=== PATIENT | male | born 1985 | race Two or more races ===

== ENCOUNTER 2017-01-19 04:53 | Emergency (ER) | payer MEDICAID ==
[~2017-01-19] VITALS: Ht 180.3 cm; Wt 108.4 kg
[2017-01-19 05:02] VITALS: BP 152/70
[2017-01-19 06:18] LABS: Urine Bilirubin Negative (Negative); Urine Blood 1+ /uL (Negative); Urine Color Yellow (Yellow); Urine Glucose Normal (Normal); Urine Ketone TRACE (Negative); Urine Nitrite Negative (Negative); Urine RBC 16 /hpf (0 - 3); Urine Squamous Epithelial Cell FEW /hpf (<5); Urine Urobilinogen Normal (Negative)
== END 2017-01-19 06:05 | disposition left against medical advice (07) ==
LOC: ER 05:00
DX: R31.9 Hematuria, unspecified (principal); Z53.21 Procedure and treatment not carried out due to patient leaving prior to being seen by health care provider
CPT/HCPCS: 81001